=== PATIENT | female | born 1960 | race Caucasian/White ===

== ENCOUNTER → 2017-09-10 | Outpatient (CLI) | payer OTHER ==
[~2017-09-10] MED LIST: AMLO-96 PO; AMLO2.5T75 PO; ASCO100T15 PO; CHOL200022 PO; LACT1CAP6 PO; LEV125 PO; LEVO-3 PO; LISI20TA29 PO; OMEG-96 PO
[2017-09-10 09:34] LABS: PLATELET COUNT, AUTOMATED 346 K/uL (150-450)
[2017-09-10 10:08] LABS: LDL CHOLESTEROL 145 mg/dl
== END ==
LOC: LAB 08:57
PROVIDERS: ATTEND Nurse Practitioner Family
DX: Z00.00 Encounter for general adult medical examination without abnormal findings (principal); E03.9 Hypothyroidism, unspecified; I10 Essential (primary) hypertension
CPT/HCPCS: 36415; 82040; 82247; 82310; 82374; 82435; 82465; 82565; 82947; 83718; 84075; 84132; 84155; 84295; 84443; 84450; 84460; 84478; 84520; 85025

== ENCOUNTER → 2017-09-13 | Outpatient (CLI) | payer OTHER | LOC: LAB 14:55 | PROVIDERS: ATTEND Nurse Practitioner Family | DX: D75.1 Secondary polycythemia (principal) | CPT/HCPCS: 36415; 82728; 83540; 83550 ==

== ENCOUNTER → 2017-09-15 | Outpatient (CLI) | payer OTHER | LOC: LAB 08:01 | PROVIDERS: ATTEND Nurse Practitioner Family | DX: D75.1 Secondary polycythemia (principal) | CPT/HCPCS: 36415; 81270; 85014; 85018; 99195 ==

== ENCOUNTER → 2017-09-24 | Outpatient (CLI) | payer OTHER | LOC: LAB 07:22 | PROVIDERS: ATTEND Nurse Practitioner Family | DX: D75.1 Secondary polycythemia (principal) | CPT/HCPCS: 36415; 82668; 85014; 85018 ==

== ENCOUNTER → 2017-10-05 | Outpatient (CLI) | payer OTHER | LOC: LAB 08:54 | PROVIDERS: ATTEND Nurse Practitioner Family | DX: D75.1 Secondary polycythemia (principal) | CPT/HCPCS: 36415; 85014; 85018; 99195 ==

== ENCOUNTER → 2017-10-12 | Outpatient (CLI) | payer OTHER | LOC: LAB 11:23 | PROVIDERS: ATTEND Nurse Practitioner Family | DX: D75.1 Secondary polycythemia (principal) | CPT/HCPCS: 36415; 85014; 85018; 99195 ==

== ENCOUNTER 2017-11-05 14:17 | Outpatient (RCR) | payer OTHER ==
[2017-11-05 14:37] VITALS: BP 144/90
[2017-11-05] MEDS ORDERED: VITA200C44 PO (14:47)
[2017-11-05] MEDS ORDERED: ASCO-182 PO (14:47)
[2017-11-05] MEDS ORDERED: AMLO-101 PO (14:47)
[2017-11-05 15:15] LABS: PLATELET COUNT, AUTOMATED 395 K/uL (150-450)
--- NOTE | 2017-11-06 13:22 | ONCOLOGY FOLLOW UP NOTE ---
EVENT DATE: November 05, 2017 REFERRING PHYSICIAN LIZA Bullock REASON FOR THE CONSULTATION Evaluation and management of erythrocytosis. HISTORY OF PRESENT ILLNESS Patient is 57-year-old female who was found on multiple occasions to have high H and H in the past. Her H and H in the past was in the range of 53.2%. She received multiple phlebotomies in the past. Her erythropoietin level was checked and came back normal at 6, and her JAK2 mutation analysis came back negative for [id number] mutation and the Exon 12 mutation. Patient is a nonsmoker and denies any constitutional symptoms. PAST MEDICAL HISTORY 1. Hypertension. 2. Hypothyroidism. PAST SURGICAL HISTORY In 1983 she had kidney stone removal. SOCIAL HISTORY Patient is . She has two children. 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 She quit smoking 20 years ago and prior to that she smoked about half a pack a day for over 10 years. She drinks about two glasses of wine daily. She denies any abuse of illicit drugs. FAMILY HISTORY Paternal grandfather had lung cancer. CURRENT MEDICATIONS 1. Levothyroxine 125 mcg daily. 2. Lisinopril 40 mg daily. 3. Norvasc 5 mg daily. 4. Vitamin C 2500 mg daily. 5. Vitamin D 2000 units daily. 6. Vitamin E one tablet daily. 7. [place]-3 one tablet daily. 8. Probiotic one tablet daily. ALLERGIES No known drug allergies. REVIEW OF SYSTEMS CONSTITUTIONAL: No appetite or weight change. No fever, chills or sweating. No recent infection. HEENT: Ears: No tinnitus or hearing problem. Nose: No nasal discharge or epistaxis. Throat: No sore throat or mouth ulcers. Eyes: No diplopia or visual changes. RESPIRATORY: No shortness of breath. No cough, expectoration or hemoptysis. CARDIOVASCULAR: No chest pain, orthopnea, or paroxysmal nocturnal dyspnea (PND) . No edema. No palpitations. GASTROINTESTINAL: No nausea or vomiting. No diarrhea or constipation. No change in bowel movements. No heartburn or swallowing difficulties. No abdominal pain. No jaundice. No hematemesis, melena or rectal bleeding. GENITOURINARY: No hematuria or dysuria. MUSCULOSKELETAL: No pain in the muscles, joints or bones. NEUROLOGICAL: No tingling or numbness in the hands or feet. No headaches or convulsions. HEMATOLOGIC/LYMPHATIC: No bleeding or easy bruising. No weakness or fatigue. No enlarged lymph nodes. SKIN: No skin rash or lumps. PSYCHIATRIC: No anxiety or depression. PHYSICAL EXAMINATION GENERAL: Looks stable. Well-developed, well-nourished, and in no acute distress. VITAL SIGNS: Blood pressure 144/90, pulse 83 per minute, respirations 16 per minute, temperature 98.3, pulse ox 90% on room air. HEENT: Head: Atraumatic. No sinus tenderness to palpation. Eyes: No icterus or conjunctivitis. Mouth and throat: No oral thrush or mucositis. NECK: Supple. No cervical or supraclavicular lymphadenopathy. LUNGS: Clear to auscultation and percussion bilaterally. HEART: Regular rate and rhythm. No gallops, murmurs, clicks or rubs. ABDOMEN: Soft and lax. No tenderness. No hepatosplenomegaly. No masses. EXTREMITIES: No cyanosis, clubbing or edema. LYMPHATICS: No peripheral lymphadenopathy. NEUROLOGICAL: Conscious, alert and oriented times three. No focal motor or sensory deficits. PSYCHIATRIC: Mood and affect appear normal. SKIN: No skin rash, bruise or purpuric eruption. ASSESSMENT 1. Erythrocytosis. Most probably it is secondary in nature, given that her JAK2 mutation for V617F mutation and Exon 12 mutation came back negative, which is supposed to be positive in about 95% of the patients. Her erythropoietin level was low normal at 6, and for this reason I am planning to repeat the erythropoietin level again, and if it is below the normal range then the patient could have JAK2 mutation negative polycythemia vera. Patient received phlebotomy sessions in the past and she got improvement of her symptoms from that. I am planning to check her erythropoietin level today and CBC, and I am planning to proceed with phlebotomy if the hematocrit is above 45%, as the patient is feeling better with that target. I will check her CBC every month and will proceed with phlebotomy whenever her hematocrit is above 45%. I will see her again in three months with CBC at that time. I explained that to the patient, patient is agreeable with the plan of management. 2. Hypothyroidism on supplement. 3. Hypertension on treatment. PLAN 1. CBC and erythropoietin level to be checked today. 2. Phlebotomize 500 mL of blood if the hematocrit is above 45%. 3. CBC to be checked monthly. 4. Patient to return in three months with CBC. 5. Patient is to contact us for any new concerns or complaints. MTDD
== END 2017-11-24 10:16 | disposition home or self-care (01) ==
LOC: ONC 14:17
PROVIDERS: ATTEND Internal Medicine Hematology
DX: D75.1 Secondary polycythemia (principal); E03.9 Hypothyroidism, unspecified; I10 Essential (primary) hypertension; Z87.891 Personal history of nicotine dependence
CPT/HCPCS: 82668; 85025; 99195

== ENCOUNTER 2018-01-21 07:35 | Outpatient (RCR) | payer OTHER ==
[2017-10-26 13:21] VITALS: BP 154/92
[2017-10-26 13:43] VITALS: BP 136/95
[2017-11-26 07:48] VITALS: BP 128/72
[2017-12-24 08:09] VITALS: BP 147/86
[2017-12-24 08:23] LABS: PLATELET COUNT, AUTOMATED 327 K/uL (150-450)
[2017-12-24 08:44] VITALS: BP 124/86
[~2018-01-21 07:35] MED LIST changes: +AMLO-101 PO; +ASCO-182 PO; +VITA200C44 PO
[2018-01-21 07:44] LABS: PLATELET COUNT, AUTOMATED 353 K/uL (150-450)
== END 2018-01-23 ==
LOC: SPU 07:35
PROVIDERS: ATTEND Nurse Practitioner Family
DX: D75.1 Secondary polycythemia (principal)
CPT/HCPCS: 36415; 85014; 85025; 85027; 99195

== ENCOUNTER 2018-04-19 08:29 | Outpatient (RCR) | payer OTHER ==
[~2018-04-19 08:29] MED LIST changes: +AMLO-111 PO; -AMLO-96 PO; +CHOL200018 PO; -CHOL200022 PO
[2018-04-19 08:42] VITALS: BP 139/86
== END 2018-05-26 ==
LOC: SPU 08:29
PROVIDERS: ATTEND Nurse Practitioner Family
DX: D75.1 Secondary polycythemia (principal)
CPT/HCPCS: 85027; 99195

== ENCOUNTER 2018-06-21 09:00 | Outpatient (RCR) | payer OTHER ==
[2018-06-21 09:05] VITALS: BP 150/87
== END 2018-07-27 11:55 | disposition home or self-care (01) ==
LOC: SPU 09:00
PROVIDERS: ATTEND Internal Medicine Hematology
DX: D75.1 Secondary polycythemia (principal)
CPT/HCPCS: 36415; 85025

== ENCOUNTER 2018-09-06 08:00 | Outpatient (RCR) | payer OTHER ==
[2018-06-21 09:16] LABS: PLATELET COUNT, AUTOMATED 312 K/uL (150-450)
[~2018-09-06 08:00] MED LIST changes: -AMLO-111 PO; +AMLO-125 PO
[2018-09-06 08:11] VITALS: BP 143/98
[2018-09-06 08:40] VITALS: BP 153/95
== END 2018-09-19 15:46 | disposition home or self-care (01) ==
LOC: SPU 08:00
PROVIDERS: ATTEND Nurse Practitioner Family
DX: D75.1 Secondary polycythemia (principal)
CPT/HCPCS: 85014; 85025; 99195

== ENCOUNTER → 2018-10-11 | Outpatient (CLI) | payer OTHER ==
[2018-10-11 08:40] LABS: LDL CHOLESTEROL 99 mg/dl
== END ==
LOC: LAB 07:18
PROVIDERS: ATTEND Nurse Practitioner Family
DX: E03.9 Hypothyroidism, unspecified (principal); I10 Essential (primary) hypertension
CPT/HCPCS: 36415; 82040; 82247; 82310; 82374; 82435; 82465; 82565; 82947; 83718; 84075; 84132; 84155; 84295; 84443; 84450; 84460; 84478; 84520

== ENCOUNTER 2018-12-19 08:28 | Outpatient (RCR) | payer OTHER ==
[2018-12-19 08:48] LABS: PLATELET COUNT, AUTOMATED 302 K/uL (150-450)
== END 2018-12-19 13:44 | disposition home or self-care (01) ==
LOC: SPU 08:28
PROVIDERS: ATTEND Nurse Practitioner Family
DX: D75.1 Secondary polycythemia (principal)
CPT/HCPCS: 85025

== ENCOUNTER 2018-12-19 08:39 | Outpatient (RCR) | payer OTHER | END 2019-01-30 16:19 | disposition home or self-care (01) | LOC: SPU 08:39 | PROVIDERS: ATTEND Internal Medicine Hematology | DX: D75.1 Secondary polycythemia (principal) | CPT/HCPCS: 99195 ==

== ENCOUNTER → 2018-12-19 | Outpatient (CLI) | payer OTHER ==
[~2018-12-19] MED LIST changes: +AMLO2.5T78 PO; +LEV112 PO
[2018-12-19 08:45] VITALS: BP 131/79
[2018-12-19 10:16] VITALS: BP 131/78
== END ==
LOC: SPU 08:43
PROVIDERS: ATTEND Nurse Practitioner Family
DX: E03.9 Hypothyroidism, unspecified (principal)
CPT/HCPCS: 84443

== ENCOUNTER 2019-03-06 15:43 | Outpatient (RCR) | payer OTHER | END 2019-03-22 12:26 | disposition home or self-care (01) | LOC: SPU 15:43 | PROVIDERS: ATTEND Internal Medicine Hematology | DX: Z02.9 Encounter for administrative examinations, unspecified (principal) ==

== ENCOUNTER → 2019-04-04 | Outpatient (CLI) | payer OTHER ==
[2019-04-05 08:21] VITALS: BP 147/93
[2019-04-05 08:25] LABS: PLATELET COUNT, AUTOMATED 341 K/uL (150-450)
== END ==
LOC: SPU 13:10
PROVIDERS: ATTEND Nurse Practitioner Family
DX: E03.9 Hypothyroidism, unspecified (principal)
CPT/HCPCS: 84443; 85025; 99195